=== PATIENT | male | born 1950 | race Caucasian/White ===

== ENCOUNTER → 2020-02-29 | Outpatient (REF) | payer OTHER ==
[2020-02-29 18:12] LABS: BASO # 0.1 10^3/uL (0.0-0.2); BASO % 0.7 % (0.0-1.0); EOS # 0.2 10^3/uL (0.0-0.5); EOS % 1.7 % (0.0-3.0); HEMATOCRIT 50.9 % (42.0-52.0); HEMOGLOBIN 16.1 g/dl (13.5-17.5); LYMPH # 2.1 10^3/uL (1.5-5.0); LYMPH % 23.3 % (24.0-44.0); MEAN CORPUSCULAR HGB CONC 31.6 g/dl (32.0-36.5); MEAN CORPUSCULAR VOLUME 107.4 fl (80.0-96.0); MONO # 0.7 10^3/uL (0.0-0.8); MONO % 7.3 % (0.0-5.0); NEUTROPHILS # 6.1 10^3/uL (1.5-8.5); NEUTROPHILS % 66.6 % (36.0-66.0); PLATELET COUNT, AUTOMATED 267 10^3/uL (150-450); RED BLOOD COUNT 4.74 10^6/uL (4.30-6.10); WHITE BLOOD COUNT 9.1 10^3/uL (4.0-10.0)
[2020-02-29 18:20] LABS: ALBUMIN 4.3 GM/DL (3.2-5.2); ALT/SGPT 30 U/L (12-78); BILIRUBIN,TOTAL 0.6 MG/DL (0.2-1.0); BLOOD UREA NITROGEN 12 MG/DL (7-18); CALCIUM LEVEL 9.5 MG/DL (8.8-10.2); CARBON DIOXIDE LEVEL 27 MEQ/L (21-32); CHLORIDE LEVEL 105 MEQ/L (98-107); CREATININE FOR GFR 1.25 MG/DL (0.70-1.30); FREE T4 0.98 NG/DL (0.76-1.46); GLOMERULAR FILTRATION RATE > 60.0 (>42); GLUCOSE, FASTING 90 MG/DL (70-100); POTASSIUM SERUM 4.4 MEQ/L (3.5-5.1); SODIUM LEVEL 139 MEQ/L (136-145); TOTAL PROTEIN 7.1 GM/DL (6.4-8.2)
== END ==
LOC: M SFHCADAM 11:44
PROVIDERS: ATTEND Family Medicine
DX: N18.9 Chronic kidney disease, unspecified (principal); F41.8 Other specified anxiety disorders; I12.9 Hypertensive chronic kidney disease with stage 1 through stage 4 chronic kidney disease, or unspecified chronic kidney disease; R97.20 Elevated prostate specific antigen [PSA]; Z87.442 Personal history of urinary calculi
CPT/HCPCS: 80053; 84439; 84443; 85025; G0103; G0463

== ENCOUNTER → 2020-03-20 | Outpatient (CLI) | payer OTHER ==
--- NOTE | 2020-03-21 01:33 | REPPI ---
Clinical: Renal calculi. Technique: Single supine view of the abdomen and pelvis. Findings: Bilateral intrarenal calculi are identified measuring up to approximately 4 mm (right greater than left). Further evaluation of the urinary tract system is limited due to technique and overlying bowel gas. Nonspecific bowel gas pattern without obstruction. No organomegaly. Skeletal structures demonstrate degenerative changes. Presumed phleboliths noted in the pelvis. Impression: Bilateral nephrolithiasis suggested. Electronically Signed by Mario Rodriguez MD 03/21/2020 01:25 A
== END ==
LOC: M PLAIMG 15:11
PROVIDERS: ATTEND Nurse Practitioner Family
DX: N20.0 Calculus of kidney (principal); N39.0 Urinary tract infection, site not specified
CPT/HCPCS: 74018; 87086; G0463

== ENCOUNTER → 2020-04-15 | Outpatient (CLI) | payer OTHER ==
--- NOTE | 2020-04-15 17:01 | REPPI ---
TRANSRECTAL PROSTATE ULTRASOUND WITH ULTRASOUND GUIDANCE FOR PROSTATE BIOPSY: Transrectal ultrasound of prostate performed. Prostate measures 3.5 x 2.9 x 4.6 cm for a total volume of 25.1 mL. There are scattered cysts and calcifications noted with diffusely heterogeneous echotexture. Symmetrical seminal vesicles are noted containing some fluid. Ultrasound guidance was provide for Dr. Calvillo who performed ultrasound-guided biopsy of the prostate. Electronically Signed by Dixon Miller MD 04/17/2020 09:52 A
== END ==
LOC: M SMT PRO 10:23
PROVIDERS: ATTEND Urology
DX: R97.20 Elevated prostate specific antigen [PSA] (principal)
CPT/HCPCS: 76872; 76942; G0416

== ENCOUNTER → 2020-09-25 | Outpatient (REF) | payer OTHER ==
[2020-09-27 01:07] LABS: PSA TOTAL 3.3 ng/mL (0.0-4.0)
== END ==
LOC: M SFHCADAM 10:24
PROVIDERS: ATTEND Urology
DX: R97.20 Elevated prostate specific antigen [PSA] (principal)

== ENCOUNTER → 2021-03-09 | Outpatient (REF) | payer OTHER | LOC: M SFHCPLAZ 09:55 | PROVIDERS: ATTEND Physician Assistant | DX: J40 Bronchitis, not specified as acute or chronic (principal) | CPT/HCPCS: 87426; G0463; U0003 ==

== ENCOUNTER → 2021-05-25 | Outpatient (REF) | payer OTHER | LOC: M SFHCADAM 11:50 | PROVIDERS: ATTEND Urology | DX: Z87.898 Personal history of other specified conditions (principal); R97.20 Elevated prostate specific antigen [PSA] ==

== ENCOUNTER → 2021-11-09 | Outpatient (REF) | payer OTHER ==
[2021-11-10 23:07] LABS: PSA TOTAL 3.5 ng/mL (0.0-4.0)
== END ==
LOC: M LABSMT 12:29
PROVIDERS: ATTEND Urology
DX: Z87.898 Personal history of other specified conditions (principal); R97.20 Elevated prostate specific antigen [PSA]

== ENCOUNTER → 2022-05-26 | Outpatient (REF) | payer OTHER ==
[2022-05-27 23:10] LABS: PSA TOTAL 3.3 ng/mL (0.0-4.0)
== END ==
LOC: M SFHCADAM 09:37
PROVIDERS: ATTEND Urology
DX: R97.20 Elevated prostate specific antigen [PSA] (principal)

== ENCOUNTER → 2022-10-11 | Outpatient (REF) | payer OTHER ==
[2022-10-12 17:08] LABS: PSA TOTAL 3.3 ng/mL (0.0-4.0)
== END ==
LOC: M SFHCADAM 09:51
PROVIDERS: ATTEND Urology
DX: Z87.898 Personal history of other specified conditions (principal); R97.20 Elevated prostate specific antigen [PSA]

== ENCOUNTER → 2023-01-03 | Outpatient (CLI) | payer OTHER | LOC: M ADAMS 14:50 | PROVIDERS: ATTEND Family Medicine | DX: R91.8 Other nonspecific abnormal finding of lung field (principal); R53.83 Other fatigue; Z86.16 Personal history of COVID-19 ==

== ENCOUNTER → 2023-01-28 | Outpatient (CLI) | payer OTHER | LOC: M RAD 14:13 | PROVIDERS: ATTEND Family Medicine | DX: R91.1 Solitary pulmonary nodule (principal) ==

== ENCOUNTER → 2023-02-14 | Outpatient (CLI) | payer OTHER | LOC: M CARPUL 13:50 | PROVIDERS: ATTEND Family Medicine | DX: R53.83 Other fatigue (principal); Z86.16 Personal history of COVID-19; Z09 Encounter for follow-up examination after completed treatment for conditions other than malignant neoplasm ==

== ENCOUNTER → 2023-05-23 | Outpatient (REF) | payer OTHER ==
[2023-05-25 23:07] LABS: PSA TOTAL 3.7 ng/mL (0.0-4.0)
== END ==
LOC: M SFHCADAM 10:06
PROVIDERS: ATTEND Urology
DX: R97.20 Elevated prostate specific antigen [PSA] (principal)

== ENCOUNTER → 2023-08-10 | Outpatient (CLI) | payer OTHER | LOC: M PLAIMG 11:17 | PROVIDERS: ATTEND Family Medicine | DX: R91.8 Other nonspecific abnormal finding of lung field (principal) ==

== ENCOUNTER → 2023-10-24 | Outpatient (REF) | payer OTHER ==
[2023-10-25 17:07] LABS: PSA TOTAL 2.9 ng/mL (0.0-4.0)
== END ==
LOC: M SFHCADAM 09:29
PROVIDERS: ATTEND Urology
DX: R97.20 Elevated prostate specific antigen [PSA] (principal)

== ENCOUNTER → 2024-09-17 | Outpatient (REF) | payer OTHER | LOC: M SFHCADAM 16:54 | PROVIDERS: ATTEND Family Medicine | DX: Z00.00 Encounter for general adult medical examination without abnormal findings (principal) ==

== ENCOUNTER → 2024-10-09 | Outpatient (CLI) | payer OTHER | LOC: M SOG 07:53 | PROVIDERS: ATTEND Physician Assistant | DX: M25.511 Pain in right shoulder (principal) ==

== ENCOUNTER → 2024-10-16 | Outpatient (CLI) | payer OTHER | LOC: M CARPUL 09:50 | PROVIDERS: ATTEND Family Medicine | DX: R06.09 Other forms of dyspnea (principal) ==

== ENCOUNTER → 2024-11-08 | Outpatient (REF) | payer OTHER ==
[2024-11-08 14:11] LABS: BASO % 0.4 % (0.0-1.0); EOS # 0.3 10^3/uL (0.0-0.5); EOS % 3.8 % (0.0-3.0); HEMATOCRIT 48.7 % (42.0-52.0); HEMOGLOBIN 15.5 g/dl (13.5-17.5); LYMPH # 1.7 10^3/uL (1.5-5.0); LYMPH % 19.2 % (24.0-44.0); MEAN CORPUSCULAR HEMOGLOBIN 33.9 pg (27.0-33.0); MEAN CORPUSCULAR HGB CONC 31.8 g/dl (32.0-36.5); MEAN CORPUSCULAR VOLUME 106.6 fl (80.0-96.0); MONO # 0.7 10^3/uL (0.0-0.8); NEUTROPHILS # 6.1 10^3/uL (1.5-8.5); NEUTROPHILS % 67.9 % (36.0-66.0); PLATELET COUNT, AUTOMATED 249 10^3/uL (150-450); RED BLOOD COUNT 4.57 10^6/uL (4.30-6.10); WHITE BLOOD COUNT 8.9 10^3/uL (4.0-10.0)
[2024-11-08 14:17] LABS: ALBUMIN 3.8 G/DL (3.2-5.2); ALKALINE PHOSPHATASE 95 U/L (40-129); ALT/SGPT 42 U/L (7.0-40); AST/SGOT 24 U/L (<34); BILIRUBIN,TOTAL 0.4 MG/DL (0.3-1.2); BLOOD UREA NITROGEN 20 MG/DL (9-23); CALCIUM LEVEL 9.6 MG/DL (8.3-10.6); CARBON DIOXIDE LEVEL 28 MMOL/L (20-31); CHLORIDE LEVEL 107 MMOL/L (98-107); CHOLESTEROL LEVEL 186 MG/DL (<200); CHOLESTEROL RISK RATIO 2.91 (<5); CREATININE FOR GFR 1.17 MG/DL (0.70-1.30); GLOMERULAR FILTRATION RATE > 60.0 (>42); GLUCOSE, FASTING 127 MG/DL (74-106); HDL CHOLESTEROL 63.8 MG/DL (>40); NON-HDL-C 122.2 MG/DL; POTASSIUM SERUM 4.7 MMOL/L (3.5-5.1); SODIUM LEVEL 144 MMOL/L (136-145); TOTAL PROTEIN 6.7 G/DL (5.7-8.2); TRIGLYCERIDES LEVEL 66 MG/DL (<150)
[2024-11-08 14:19] LABS: THYROID STIMULATING HORMONE 3.678 uIU/ML (0.55-4.78)
[2024-11-09 14:31] LABS: PSA FREE 0.4 ng/mL; PSA TOTAL 2.3 ng/mL (< OR = 4.0)
== END ==
LOC: M SFHCADAM 09:07
PROVIDERS: ATTEND Urology
DX: Z00.00 Encounter for general adult medical examination without abnormal findings (principal); Z87.898 Personal history of other specified conditions

== ENCOUNTER → 2024-12-12 | Outpatient (CLI) | payer MEDICARE | LOC: M RAD 14:31 | PROVIDERS: ATTEND Urology | DX: F17.218 Nicotine dependence, cigarettes, with other nicotine-induced disorders (principal) ==

== ENCOUNTER → 2025-05-21 | Outpatient (REF) | payer MEDICARE ==
[2025-05-21 15:28] LABS: CALCIUM LEVEL 8.9 MG/DL (8.3-10.6); CARBON DIOXIDE LEVEL 26.0 MMOL/L (20-31); CHLORIDE LEVEL 105.0 MMOL/L (98-107); CREATININE FOR GFR 1.24 MG/DL (0.70-1.30); GLOMERULAR FILTRATION RATE 60.6 (>42); POTASSIUM SERUM 4.1 MMOL/L (3.5-5.1); SODIUM LEVEL 143.0 MMOL/L (136-145)
[2025-05-21 16:15] LABS: ESTIMATED AVERAGE GLUCOSE 105.0 MG/DL (60-110)
== END ==
LOC: M SFHCADAM 08:09
PROVIDERS: ATTEND Family Medicine
DX: R73.9 Hyperglycemia, unspecified (principal)